=== PATIENT | male | born 1940 | race Caucasian/White ===

== ENCOUNTER 2018-11-12 17:17 | Emergency (ER) | payer MEDICARE, OTHER ==
[~2018-11-12] VITALS: Ht 167.6 cm; Wt 68.5 kg
--- OUTSIDE RECORDS SUMMARY | ~2018-11-12 | XMS | Clinical Summary ---
Demographics + + + | Address | [address] | | | [place] [address] | + + + | Home Phone | | + + + | Preferred Language | Unknown | + + + | Marital Status | | + + + | Gnosticist Affiliation | Unknown | + + + | Race | Unknown | + + + | Ethnic Group | Unknown | + + + Author + + + | Author | [facility] | + + + | Organization | [facility] | + + + | Address | Unknown | + + + | Phone | Unavailable | + + + Support + + +---------+ + | Name | Relationship | Address | Phone | + + +---------+ + | Arlene Adams | ECON | Unknown | | + + +---------+ + Care Team Providers + +------+ + | Care Leasing Coordinator Name | Role | Phone | + +------+ + | Elo Gallagher Family | PP | | + +------+ + Allergies + + + + + + | Active Allergy | Reactions | Severity | Noted | Comments | | | | | Date | | + + + + + + | Atenolol | Other (See Comments) | Medium | 01/13/20 | Bradycardia, | | | | | 18 | hypotension | + + + + + + | Atorvastatin | Muscle Pain | | 01/13/20 | | | | | | 18 | | + + + + + + Current Medications + + +-------+---------+------+------+-------+ | Prescription | Sig. | Disp. | Refills | Star | End | Statu | | | | | | t | Date | s | | | | | | Date | | | + + +-------+---------+------+------+-------+ | tamsulosin | Take 0.4 mg by mouth | | | | | Activ | | (FLOMAX) 0.4 MG | After dinner. | | | | | e | | capsule | | | | | | | + + +-------+---------+------+------+-------+ | potassium chloride | Take 10 mEq by mouth | | | | | Activ | | (K-DUR) 10 MEQ | daily. | | | | | e | | tablet | | | | | | | + + +-------+---------+------+------+-------+ | aspirin 81 MG | Take 81 mg by mouth | | | | | Activ | | tablet | daily. | | | | | e | + + +-------+---------+------+------+-------+ | Magnesium | Take 1 tablet by | | | | | Activ | | Cl-Calcium Carbonate | mouth daily. | | | | | e | | (SLOW-MAG PO) | | | | | | | + + +-------+---------+------+------+-------+ | lisinopril | Take 10 mg by mouth | | | | | Activ | | (ZESTRIL) 10 MG | daily. | | | | | e | | tablet | | | | | | | + + +-------+---------+------+------+-------+ | lovastatin | Take 40 mg by mouth | | | | | Activ | | (MEVACOR) 40 MG | 2 (two) times daily. | | | | | e | | tablet | | | | | | | + + +-------+---------+------+------+-------+ Active Problems + + + | Problem | Noted Date | + + + | S/P CABG (coronary artery bypass graft) | 06/06/2013 | + + + | Hyperlipidemia | 06/06/2013 | + + + | CAD (coronary artery disease) | 09/28/2011 | + + + Family History + +------+ + + | Relation | Name | Status | Comments | + +------+ + + | Father | | | CAD | | | | (Age | | | | | 87) | | + +------+ + + | Mother | | | | | | | (Age | | | | | 86) | | + +------+ + + Social History + +-------+ +--------+------+ | Tobacco Use | Types | Packs/Day | Years | Date | | | | | Used | | + +-------+ +--------+------+ | Former Smoker | | | | | + +-------+ +--------+------+ + +---+---+---+ | Smokeless Tobacco: | | | | | Never Used | | | | + +---+---+---+ + + +---------+ + | Alcohol Use | Drinks/We | oz/Week | Comments | | | ek | | | + + +---------+ + | Yes | | | occ | + + +---------+ + + + + | Sex Assigned at | Date Recorded | | | | + + + | Not on file | | + + + Last Filed Vital Signs + + + + | Vital Sign | Reading | Time Taken | + + + + | Blood Pressure | 130/50 | 01/12/2018 9:24 AM PDT | + + + + | Pulse | 70 | 01/12/2018 9:24 AM PDT | + + + + | Temperature | - | - | + + + + | Respiratory Rate | - | - | + + + + | Oxygen Saturation | 95% | 01/12/2018 9:24 AM PDT | + + + + | Inhaled Oxygen | - | - | | Concentration | | | + + + + | Weight | 73.4 kg (161 lb 14.4 | 01/12/2018 9:24 AM PDT | | | oz) | | + + + + | Height | 167.6 cm (5' 6") | 01/12/2018 9:24 AM PDT | + + + + | Body Mass Index | 26.13 | 01/12/2018 9:24 AM PDT | + + + + Plan of Treatment +--------+---------+ + + + | Date | Type | Specialty | Care Team | Description | +--------+---------+ + + + | 12/28/ | Office | | Alexa Carrington, | | | 2019 | Visit | | MD Oly Mckeon | | | | | | [address], | | | | | | [place] [address] | | | | | | [phone] | | | | | | | | +--------+---------+ + + + + + + + + | Health Maintenance | Due Date | Last Done | Comments | + + + + + | Vaccine: | 03/22/195 | | | | Dtap/Tdap/Td (1 - | 9 | | | | Tdap) | | | | + + + + + | Vaccine: Zoster (1 | | | | | of 2) | 0 | | | + + + + + | Vaccine: | | | | | Pneumococcal 65+ | 5 | | | | Low/Medium Risk (1 | | | | | of 2 - PCV13) | | | | + + + + + | Vaccine: Influenza | | | | | (#1) | 8 | | | + + + + + Results Not on filefrom Last 3 Months Insurance + +--------+ +------+-------+ + | Payer | Benefi | Subscriber | Type | Phone | Address | | | t Plan | ID | | | | | | / | | | | | | | Group | | | | | + +--------+ +------+-------+ + | MEDICARE | MEDICA | [id number] | | | [address] | | | RE | | | | [place] [address] | | | IP-OP | | | | | + +--------+ +------+-------+ + | [employer] [place] | [employer]UAL | [id number] | | | | | | [place] | | | | | | | [place] | | | | | + +--------+ +------+-------+ + + +--------+ +--------+ + + | Guarantor Name | Accoun | Relation to | Date | Phone | Billing Address | | | t Type | Patient | of | | | | | | | | | | + +--------+ +--------+ + + | SHADY ADAMS | Person | Self [birth year] Home: | [address] [place] [address] | | | [place] | | 1941 | [phone] | [place] | | | [place] | | | [phone] | [phone] | + +--------+ +--------+ + +
--- OUTSIDE RECORDS SUMMARY | ~2018-11-12 | XMS | Clinical Summary ---
Demographics + + + | Address | [address] | | | [place] [address] | + + + | Home Phone | | + + + | Preferred Language | Unknown | + + + | Marital Status | | + + + | Voodoo Affiliation | Unknown | + + + | Race | Unknown | + + + | Ethnic Group | Unknown | + + + Author + + + | Author | [facility] | + + + | Organization | [facility] | + + + | Address | Unknown | + + + | Phone | Unavailable | + + + Support + + +---------+ + | Name | Relationship | Address | Phone | + + +---------+ + | Arlene Adams | ECON | Unknown | | + + +---------+ + Care Team Providers + +------+ + | Care Hair Machine Operator Name | Role | Phone | + [...] | | | | | | [place] [address] | | | | | | [phone] | | | | | | | [...] +------+-------+ + | MEDICARE | MEDICA | [id number] | | | [address] | | | RE | | | | [place] [address] | | | IP-OP | | | | | + +--------+ +------+-------+ + | [employer] [place] | MUTUAL | [id number] | | | | | | [place] | | | | | | | [place] | | | | | + +--------+ [...] | Self | [birth year] | Home: | [address] [place] [address] | | | tarah/[place] | | 1941 | [phone] | [place] | | | [place] | | | [phone] | [phone] | + +--------+ +--------+ + +
[2018-11-12] MEDS ORDERED: ADULT ASPIRIN81 MG PO (17:33)
[2018-11-12] MEDS ORDERED: LISINOPRIL10 MG PO (17:34)
[2018-11-12] MEDS ORDERED: POTASSIUM CHLO10 ME1 PO (17:35)
[2018-11-12] MEDS ORDERED: FLOMAX0.4 MG (17:36)
[2018-11-12] MEDS ORDERED: DOK250 MG PO (17:36)
--- NOTE | 2018-11-12 20:05 | EKG ---
[facility] [address] [place] [address] Signed Normal sinus rhythm Septal infarct , age undetermined Abnormal ECG No previous ECGs available Confirmed by JUNIOR BERRIOS MD ([id number]) on 11/12/2018 8:05:39 PM Electronically Signed By: JUNIOR BERRIOS MD 11/12/182004 PATIENT NAME: OLGA BLANKENSHIP Electrocardiogram DATE OF : 38 PHYSICIAN: JUNIOR BERRIOS MD REPORT #: [id number] REPORT IS CONFIDENTIAL AND NOT TO BE RELEASED WITHOUT AUTHORIZATION
== END 2018-11-12 18:28 | disposition home or self-care (01) ==
LOC: ED 17:17
DX: I20.8 Other forms of angina pectoris (principal); Z79.82 Long term (current) use of aspirin; Z79.899 Other long term (current) drug therapy
CPT/HCPCS: 71045; 80053; 84484; 85025; 93005; 93010; 99285-25

== ENCOUNTER 2019-06-17 10:19 | Emergency (ER) | payer MEDICARE, OTHER ==
[~2019-06-17] VITALS: Ht 167.6 cm; Wt 69.4 kg
[~2019-06-17 10:19] MED LIST: ADULT ASPIRIN81 MG PO; DOK250 MG PO; FLOMAX0.4 MG; LISINOPRIL10 MG PO; POTASSIUM CHLO10 ME1 PO
[2019-06-17] MEDS ORDERED: LOVASTATIN40 MG PO (10:40)
[2019-06-17] MEDS ORDERED: SLOW-MAG71.5 MG PO (10:41)
[2019-06-17] MEDS ORDERED: ESSENTIAL DAIL1 EACH PO (10:42)
[2019-06-17] MEDS ORDERED: METAMUCIL0.4 GM PO (10:43)
--- NOTE | 2019-06-18 15:31 | EKG ---
[facility] [address] [facility] [place], [place] [address] Signed Sinus rhythm with frequent premature ventricular complexes Septal infarct (cited on or before 12-NOV-2018) Abnormal ECG When compared with ECG of 12-NOV-2018 17:22, premature ventricular complexes are now present Confirmed by CARLOS MAN DO ([id number]) on 06/18/2019 3:31:28 PM Electronically Signed By: CARLOS MAN DO 06/18/19 1531 PATIENT NAME: OLGA BLANKENSHIP Electrocardiogram DATE OF : 38 PHYSICIAN: CARLOS MAN DO REPORT #: [id number] REPORT IS CONFIDENTIAL AND NOT TO BE RELEASED WITHOUT AUTHORIZATION
== END 2019-06-17 14:21 | disposition home or self-care (01) ==
LOC: ED 10:19
DX: I49.3 Ventricular premature depolarization (principal); R11.0 Nausea; N39.0 Urinary tract infection, site not specified; Z87.891 Personal history of nicotine dependence; Z79.899 Other long term (current) drug therapy; Z79.82 Long term (current) use of aspirin
CPT/HCPCS: 80053; 81001; 84484; 85025; 93005; 93010; 99285-25